=== PATIENT | female | born 1970 | race Caucasian/White ===

== ENCOUNTER 2018-11-07 01:09 | Emergency (ER) | payer OTHER ==
[~2018-11-07] VITALS: Ht 160 cm; Wt 83.2 kg
[2018-11-07 01:16] VITALS: BP 120/84
[2018-11-07] MEDS ORDERED: CHOL50004 PO (01:29)
[2018-11-07] MEDS ORDERED: HYDROCODONE/ACETAMINOPHEN 5-325 MG TABLET PO ONE (03:45)
== END 2018-11-07 04:36 | disposition home or self-care (01) ==
LOC: EMS 01:10
DX: S83.412A Sprain of medial collateral ligament of left knee, initial encounter (principal); S80.02XA Contusion of left knee, initial encounter; M54.5 Low back pain; M19.90 Unspecified osteoarthritis, unspecified site; Z88.0 Allergy status to penicillin; X50.9XXA Other and unspecified overexertion or strenuous movements or postures, initial encounter; Y93.E1 Activity, personal bathing and showering; Y92.89 Other specified places as the place of occurrence of the external cause; Y99.8 Other external cause status
CPT/HCPCS: 29505; 29530